=== PATIENT | male | born 1980 | race Caucasian/White ===

== ENCOUNTER 2018-11-28 22:52 | Emergency (ER) | payer SELFPAY ==
[2018-11-28 22:54] VITALS: BP 147/105
--- NOTE | 2018-11-28 22:58 | ER Report ---
History and Physical Time Seen By MD: 22:48 HPI/ROS CHIEF COMPLAINT: penitentiary clearance HISTORY OF PRESENT ILLNESS: This is a 38 year old male. He is brought to the ER by the [place] for intoxication and penitentiary clearance. Patient is not forthcoming with other information. He does state he has not pain. He denies taking medicines or medical problems. Will not talk about alcohol intake or other substances. He does let me do a brief exam. REVIEW OF SYSTEMS: Unable to obtain. Allergies: Coded Allergies: UNABLE TO OBTAIN (Unverified , 11/28/18) PT BEING UNCOOPERATIVE. Home Meds Unable to Obtain Active Prescriptions or Reported Meds Reviewed Nurses Notes: Yes Constitutional Vital Sign - Last 24 Hours 11/28/18 22:54 Temp 97.7 Pulse 144 Resp 16 B/P (MAP) 147/105 Pulse Ox 94 O2 Delivery Room Air Physical Exam General Appearance: The patient is alert, has no immediate need for airway protection and appears intoxicated. Eyes: Pupils equal and round with mild scleral injection. ENT: Normal oral mucosa. Moist mucous membranes. Tympanic membranes are normal. Neck: Neck is supple and non tender. Respiratory: Chest is non tender, lungs are clear to auscultation. Cardiac: regular rate and rhythm, good peripheral perfusion. Gastrointestinal: Abdomen is soft and non tender, bowel sounds normal. Musculoskeletal: Extremities have full range of motion. Skin: No rashes or lesions. Neuro: Normal other than intoxication. DIFFERENTIAL DIAGNOSIS: After history and physical exam differential diagnosis was considered for alcohol intoxication, penitentiary clearance Medical Decision Making ED Course/Re-evaluation ED Course Patient without evidence of major medical problems. Cleared to be discharged with police to penitentiary. Decision to Disposition Date: Nov 28, 2018 Decision to Disposition Time: 22:53 Depart Departure Latest Vital Signs Vital Signs Date Time Temp Pulse Resp B/P (MAP) Pulse Ox O2 Delivery O2 Flow Rate FiO2 11/28/18 22:54 97.7 144 16 147/105 94 Room Air Impression: Primary Impression: Alcohol intoxication Condition: Improved Disposition: [facility] TO [facility]RECTIONAL F New Scripts Unable to Obtain Active Prescriptions or Reported Meds Patient Instructions: Alcohol Intoxication (ED) Problem Qualifiers Primary Impression: Alcohol intoxication Complication of substance-induced condition: uncomplicated Qualified Codes: F10.920 - Alcohol use, unspecified with intoxication, uncomplicated ALEXIA COLVIN MD Nov 28, 2018 22:58
== END 2018-11-28 22:59 ==
LOC: ER 22:58
DX: F10.920 Alcohol use, unspecified with intoxication, uncomplicated (principal)
CPT/HCPCS: 99281